=== PATIENT | female | born 1975 | race Caucasian/White ===

== ENCOUNTER 2019-02-05 20:04 | Inpatient (IN) | payer MEDICAID, SELFPAY ==
--- NOTE | ~2019-02-05 | CT_ITS ---
EXAMINATION: CT facial bones w con DATE: 02/05/2019 22:37 INDICATION: Left facial swelling and erythema and pain. TECHNIQUE: Computed tomography (CT) of the facial bones and maxillofacial region was performed with 7 5 mL Omnipaque 350 intravenous contrast. Automated exposure control and iterative reconstruction tech Dvine[employer]que were employed. The dose-length product was 1220.05 mGy-cm. COMPARISON: None. FINDINGS: There is mild mucosal thickening in the ethmoid sinuses. There is a mucous retention cyst i n right maxillary sinus. There is moderate mucosal thickening in left maxillary sinus. The orbits are normal. The proximal internal carotid arteries are normal. There are lucencies around the roots of t ooth 15 with breech of the buccal cortex of the alveolar process. There is fat stranding in left face , consistent with edema/inflammation. There is mild cervical spondylosis. IMPRESSION: 1. Lucencies around the roots of tooth 15 with breech of the buccal cortex of the alveolar process. Reviewed, dictated and finalized at location B. [employer]ICAL POWER ENGINEER IMPRESSION: 1. Lucencies around the roots of tooth 15 with breech of the buccal cortex of t he alveolar process.
[2019-02-05 20:07] VITALS: BP 140/70; PULSE 92; RESP 18; TEMP 36.2; O2SAT 100
--- NOTE | 2019-02-05 21:46 | ED.GENADULT ---
HPI - General Adult General Chief complaint: Dental/Oral Stated complaint: L UPPER JAW INFECTION Time Seen by Provider: 02/05/19 21:36 Source: patient Mode of arrival: ambulatory Limitations: no limitations History of Present Illness HPI narrative: Pt is a 43 y/o female presenting to the ED c/o jaw infection. Pt reports she presented to this ED last Wednesday where she was diagnosed with a jaw infection and prescribed Clindamycin and Z-Pack. Pt notes her swelling has worsened and her pain is now radiating to the top of her head. Pt denies SOB. Onset (ago): unknown Location: mouth (Lt sided jaw) Radiation: other (Top of head) Associated symptoms: other (None) Related Data Home Medications Medication Instructions Recorded Confirmed clindamycin HCl 300 mg PO Q8H 02/05/19 02/05/19 naproxen sodium 440 mg PO BID 02/05/19 02/05/19 Allergies Allergy/AdvReac Type Severity Reaction Status Date / Time Penicillins Allergy Unknown Verified 02/05/19 21:38 Review of Systems Review of Systems: All systems reviewed & are unremarkable except as noted in HPI and below ENT: Reports other (Lt sided jaw pain radiating to top of head) Respiratory: Respiratory: Denies dyspnea PMFSH Past Medical History Medical History Endometriosis (Acute) Surgical History Surgical History History of endometrial ablation (Acute) Social History Social History Smoking status: Current every day smoker Additional smoking assessment comments: 1/2 PPD Gender identity (if verbalized by the patient): Female Exam Const: Other: Well appearing, well nourished, and in no acute distress. HENMT: Other: Diffuse lt sided facial swelling. Eyes: Other: EOMI. Neck: Other: Supple Resp: Other: Airway patent. No respiratory distress. Back/Spine/Pelvis: Other: Normal ROM. Skin: Other: Warm, dry, and normal color. Neuro: Other: Alert and oriented x4. speech clear. Motor intact. CN II-XII intact. Extrem: Other: Full ROM Psych: Other: Normal mood and normal affect. Course Course Emergency Course: Re the listed PCN allergy, she states that is whet her mom, now , always told her but she doesn't know why. Additionally she notes that she has taken amoxicillin without any problems. So, appears it would be safe to give her unasyn for her sinus/dental/cellulitis condition Also notes she has an appointment with oral surgery on / on Wednesday Vital Signs Vital signs: Vital Signs Temperature 36.2 C L 02/05/19 20:07 Pulse Rate 92 02/05/19 20:07 Respiratory Rate 18 02/05/19 20:07 Blood Pressure 140/70 02/05/19 20:07 Pulse Oximetry 100 02/05/19 20:07 Temperature 36.2 C L 02/05/19 20:07 Pulse Rate 92 02/05/19 20:07 Respiratory Rate 18 02/05/19 20:07 Blood Pressure 140/70 02/05/19 20:07 Pulse Oximetry 100 02/05/19 20:07 Medical Decision Making Vital Signs Vital Signs: Vital Signs Temperature 36.2 C L 02/05/19 20:07 Pulse Rate 92 02/05/19 20:07 Respiratory Rate 18 02/05/19 20:07 Blood Pressure 140/70 02/05/19 20:07 Pulse Oximetry 100 02/05/19 20:07 Temperature 36.2 C L 02/05/19 20:07 Pulse Rate 92 02/05/19 20:07 Respiratory Rate 18 02/05/19 20:07 Blood Pressure 140/70 02/05/19 20:07 Pulse Oximetry 100 02/05/19 20:07 Lab Data Result diagrams: 02/05/19 22:10 02/05/19 22:10 Labs: Lab Results 02/05/19 02/05/19 Range/Units 22:10 22:10 WBC 10.8 H (4.5-10.0) K/mm3 RBC 4.41 (4.2-5.4) M/mm3 Hgb 13.6 (12.0-15.0) g/dL Hct 40.5 (37.0-47.0) % MCV 91.8 (80-100) fl MCH 30.8 (26-34) pg MCHC 33.6 (32-36) g/dl RDW 12.1 (11.5-14.5) % Plt Count 245 (150-375) k/mm3 MPV 9.9 (7.4-10.4) fl Immature Gran % (Auto) 0.3 (0-0.5) % Neut % (Auto) 59.9 (45.5-73.1)
[2019-02-05 22:17] LABS: Basophils Absolute Auto 0.1 K/mm3 (0.0-0.1); Basophils Percent Auto 0.7 % (0.2-1.2); Eosinophils Absolute Auto 0.4 K/mm3 (0-0.3); Eosinophils Percent Auto 3.6 % (0-4.4); Hematocrit 40.5 % (37.0-47.0); Hemoglobin 13.6 g/dL (12.0-15.0); Immature Granulocyte Absolute 0.03 K/mm3 (0.00-0.031); Immature Granulocyte Percent A 0.3 % (0-0.5); Lymphocytes Absolute Auto 3.13 K/mm3 (0.9-3.2); Mean Corpuscular HGB Conc 33.6 g/dl (32-36); Mean Corpuscular Hemoglobin 30.8 pg (26-34); Mean Corpuscular Volume 91.8 fl (80-100); Mean Platelet Volume 9.9 fl (7.4-10.4); Monocytes Absolute Auto 0.7 K/mm3 (0.1-0.6); Monocytes Percent Auto 6.5 % (2.6-8.5); Neutrophils Absolute Auto 6.5 K/mm3 (1.3-6.7); Neutrophils Percent Auto 59.9 % (45.5-73.1); Platelet Count Result 245 k/mm3 (150-375); Red Blood Count 4.41 M/mm3 (4.2-5.4); Red Cell Distribution Width 12.1 % (11.5-14.5); White Blood Count 10.8 K/mm3 (4.5-10.0)
[2019-02-05 22:28] LABS: Blood Urea Nitrogen 10 mg/dL (7-17); Calcium 9.6 mg/dL (8.4-10.2); Carbon Dioxide 23 mmol/L (22-30); Chloride 103 mmol/L (98-107); Estimated CRCL calculation 121 ml/min; Estimated Glomerular Filt Rate > 60; Glucose 96 mg/dL (65-105); Potassium 3.9 mmol/L (3.4-5.0); Sodium 138 mmol/L (137-145)
[2019-02-06] MEDS: ONDANSETRON INJ 4 MG/2 ML VIAL IV PUSH (00:23)
[2019-02-06] MEDS: ACETAMINOPHEN 325 MG TABLET 650 MG PO ×2 (00:24→12:56)
[2019-02-06] MEDS: LACTATED RINGERS 1,000 ML 125 ML IV CONT ×2 (00:26→08:52)
[2019-02-06] MEDS: AMPICILLIN SODIUM/SULBACTAM 3 GM in SODIUM CHLORIDE 0.9% IV 100 ML IVPB ×3 (00:28→11:55)
[2019-02-06 02:00] VITALS: BP 117/82; PULSE 71; RESP 18; TEMP 37; O2SAT 100
[2019-02-06 02:20] VITALS: BP 133/84; PULSE 65; RESP 16; TEMP 36.2; O2SAT 98; BMI 32.4
--- NOTE | 2019-02-06 02:29 | ADMGEN ---
This patient, Alona Blackburn, was admitted to 3 [facility] Surg Room 330-01. Patient/family oriented to hospital policies and general routines including ID bracelet, bed and alarms, visiting hours, pain management, procedures, bathroom and other care routines, personal items, smoking policy, room service/diet, and visiting hours. Valuables list has been completed. Information on how to activate the Rapid Response Team has been discussed. Patient/Family are encouraged to report perceived risks to care and to ask questions if they do not understand what they are told or what they should do.
--- NOTE | 2019-02-06 14:27 | PM.SD ---
Same Day Admit/Disch: HPI History of Present Illness Chief complaint: facial cellulitis Narrative: Alona Blackburn is a 43 year old female who presented to the emergency room for left-sided tooth pain and facial swelling. Patient states that she was in the emergency room last Wednesday for this and was given clindamycin and went home. She proceeded to get worse and came back to emergency room and got azithromycin which did not seem to help either. Finally, she came back 02/05 with worsened facial cellulitis with progressing tooth pain. States the pain started in her left back tooth and hurt through her sinus, to her temporal bone, and down her jaw. This was associated with a slight headache. She was unable to eat cold items but hot food and liquids seem to help. She called an oral surgeon, Dr. rueda with [facility] oral surgery and has an appointment 02/07 at 1:30 pm. for extraction. She says she does not think she was running fevers but she did not check. She denied vision changes, diarrhea, chest pain, shortness of breath, nausea or vomiting. She did have some nausea when taking her antibiotic but nothing other than that. She said her last dental cleaning was in 2015. She has no history of tooth abscess and she has had her wisdom teeth removed. She says she initially thought she had a popcorn kernel stuck in her left back tooth and when she went to pick at it she had excruciating pain which never resolved. She does eat quite a bit of sweets and since it was just Halloween she has probably eating a little more than usual. [facility] Past Medical History Medical History (Updated 02/06/19 @ 14:51 by Gabriela Pastrana PA-C) Endometriosis (Acute) HLD (hyperlipidemia) (Inactive) Surgical History Surgical History (Updated 02/06/19 @ 14:47 by Gabriela Pastrana PA-C) History of endometrial ablation (Acute) Tubal ligation status (Acute) Family History Family History Grandparent Stomach cancer Sibling Diabetes mellitus Mother Diabetes mellitus Heart attack Social History Social History Smoking packs per day: 1 Smoking cigarettes per day: 20.0 Years smoked: 33 Smoking pack-years: 33.00 Smoking status: Current every day smoker Additional smoking assessment comments: /2 PPD Alcohol intake: current Substance use: never Gender identity (if verbalized by the patient): Female Spiritual care concerns: No Agree to blood products: Yes Same Day Admit/Disch: Med Pre-admit Medications Home Medications Medication Instructions Recorded Confirmed Type naproxen sodium 440 mg PO BID 02/05/19 02/06/19 History Exam Narrative: Exam Narrative: General:Well developed well nourished patient HEENT: Normocephalic with very slight left cheek erythema and swelling. Tooth examined and is limited since it is the dorsal part of her tooth. sinus pain in the left maxillary area. Neck: Supple Resp: CTA Heart: RRR with no murmurs Abd: Soft, nontender. No pain to palpation. Positive bowel sounds Skin: Warm and dry Extremities: No swelling, erythema or pain to palpation Neuro: Alert and Oriented x4 . CN 2-12 intact. No focal neurological deficits. DS: Data Data Completed and Pending Labs on day of discharge: Labs from last 24 hours 02/05/19 02/05/19 22:10 22:10 WBC 10.8 H RBC 4.41 Hgb 13.6 Hct 40.5 MCV 91.8 MCH 30.8 MCHC 33.6 RDW 12.1 Plt Count 245 MPV 9.9 Immature Gran % (Auto) 0.3 Neut % (Auto) 59.9 Lymph % (Auto) 29.0 Borden % (Auto) 6.5 Eos % (Auto) 3.6 Baso % (Auto) 0.7 Lymph # (Auto) 3.13 Borden # (Auto) 0.7 H Eos # (Auto) 0.4 H Baso # (Auto) 0.1 Abs Immat Gran (auto) 0.03 Absolute Neuts (auto) 6.5 Absolute Nucleated RBC 0.0 Nucleated RBC % 0.0 Sodium 138 Potassium 3.9 Chloride 103 Carbon Dioxide 23 BUN 10 Creatinine 0.
--- NOTE | 2019-02-06 15:31 | PC.NURSE ---
Around 10a, told Gabriela Pastrana that pt's oral surgeon is Dr Mae at [facility] [phone].
== END 2019-02-06 15:10 | disposition home or self-care (01) | DRG 114 ==
LOC: ANHED 23:44 → ANH3MEDSUR 02-06 01:19
PROVIDERS: Admitting Provider Internal Medicine; Emergency Provider Emergency Medicine; Visit Provider Internal Medicine
DX: K04.7 Periapical abscess without sinus (principal); L03.211 Cellulitis of face; J32.9 Chronic sinusitis, unspecified; F17.210 Nicotine dependence, cigarettes, uncomplicated
CPT/HCPCS: 36415; 70487; 80048; 85025; 96361; 96374; 96375; 99285; A9270; J0295; J2405; J7120; Q9967

== ENCOUNTER 2019-05-16 09:55 | Emergency (ER) | payer OTHER, SELFPAY ==
[2019-05-16 09:59] VITALS: BP 132/71; PULSE 109; RESP 16; TEMP 37.2; O2SAT 99
--- NOTE | 2019-05-16 11:01 | ED.BACK ---
HPI - Back Pain/Injury General Chief Complaint: Back Pain/Injury Stated Complaint: cough, back pain Time Seen by Provider: 05/16/19 10:35 Source: patient Mode of arrival: ambulatory Limitations: no limitations History of Present Illness HPI Narrative: Patient is a 43-year-old female who presents to emergency department for evaluation of cough congestion rhinorrhea body aches back pain for the last 3 days has taken ibuprofen with minimal improvement does note history of chronic low back pain patient denies other complaints and on arrival is in the room in no distress took ibuprofen this morning Related Data Allergies Allergy/AdvReac Type Severity Reaction Status Date / Time lactose AdvReac Gastrointestinal Verified 05/16/19 10:59 Upset Review of Systems Review of Systems: All systems reviewed & are unremarkable except as noted in HPI and below PMFSH Past Medical History Medical History Endometriosis HLD (hyperlipidemia) Surgical History Surgical History History of endometrial ablation Tubal ligation status Family History Family History Grandparent Stomach cancer Sibling Diabetes mellitus Mother Diabetes mellitus Heart attack Social History Social History Smoking packs per day: 1 Smoking cigarettes per day: 20.0 Years smoked: 33 Smoking pack-years: 33.00 Smoking status: Current every day smoker Additional smoking assessment comments: 1/2 PPD Alcohol intake: current Substance use: never Gender identity (if verbalized by the patient): Female Spiritual care concerns: No Agree to blood products: Yes Exam Narrative: Exam Narrative: GENERAL: Well-appearing, well-nourished, and in no acute distress. HEAD: Normocephalic, atraumatic. EYES: PERRLA and EOMI. ENT: Nares clear, no rhinorrhea or epistaxis. Mucous membranes moist. Oropharynx without tonsillar hypertrophy exudate or other lesions. NECK: Supple. No adenopathy or masses. CHEST: Clear to auscultation. No respiratory distress. No wheezes rales or rhonchi HEART: Regular rate and rhythm. No murmur heard. Normal peripheral pulses. EXTREMITIES: Normal range of motion. No edema. SKIN: Warm, dry, no rash. NEURO: No focal deficits. Alert and oriented x3. Cranial nerves II through XII grossly intact PSYCH: Normal mood and affect. Course Course Emergency Course: Patient in the room in no distress aware of case findings treatment plan and diagnosis Vital Signs Vital signs: Vital Signs Temperature 98.9 F 05/16/19 09:59 Pulse Rate 109 H 05/16/19 09:59 Respiratory Rate 16 05/16/19 09:59 Blood Pressure 132/71 05/16/19 09:59 Pulse Oximetry 99 05/16/19 09:59 Temperature 98.9 F 05/16/19 09:59 Pulse Rate 109 H 05/16/19 09:59 Respiratory Rate 16 05/16/19 09:59 Blood Pressure 132/71 05/16/19 09:59 Pulse Oximetry 99 05/16/19 09:59 MDM - Back Pain/Injury MDM Narrative Medical decision making narrative: Patient with influenza afebrile nontoxic-appearing no distress felt appropriate for outpatient reevaluation Lab Data Labs: Influenza A Screen Positive Reference Range: Negative Influenza B Screen Negative Reference Range: Negative Discharge Plan Discharge Clinical Impression: Influenza Patient Disposition: Home, Self-Care Condition: Stable Instructions: Antibiotic Form, Influenza (DC) Additional Instructions: Follow up with your primary care provider within 5-7 days. Go to ER for shortness of breath, difficulty breathing, chest pain, fever/chills, weakness, nauseau/vomitting, etc. or any other concerns. Stay well-hydrated Take any prescribed medications as directed. Follow patient education sheets If you do no
[2019-05-16] MEDS: ACETAMINOPHEN 500 MG TABLET 1000 MG PO (11:12)
[2019-05-16] MEDS: IBUPROFEN 600 MG TABLET PO (11:12)
--- NOTE | 2019-05-16 11:19 | PC.NURSE ---
Bedside report to KACIE Mascorro, to continue care.
[2019-05-16 11:20] VITALS: BP 123/74; PULSE 104; RESP 12; TEMP 37.2; O2SAT 95
--- NOTE | 2019-05-16 11:21 | PC.NURSE ---
assumed care of pt at this time. report from KACIE boyd
[2019-05-16 11:26] LABS: Add Urine Microscopic? YES; Appearance Urine Cloudy (Clear); Bacteria Urine Trace /hpf; Bilirubin Urine Negative (Negative); Blood Urine 3+ (Negative); Color Urine Yellow (Yellow); Glucose Urine UA Negative (Negative); Ketones Urine Trace mg/dL (Negative); Leukocyte Esterase Ur Trace LEU/UL (Negative); Mucus Urine Few /lpf; Nitrate Urine Negative (Negative); Protein Urine 2+ mg/dL (Negative); RBC Urine 21-50 /hpf (0-2); Specific Grav Ur 1.027 (1.001-1.035); Squamous Epithelial Cell Urine Many /hpf (Few); Urobilinogen Urine Negative mg/dL (<2.0)
[2019-05-16 12:05] VITALS: BP 121/80; PULSE 100; RESP 19; TEMP 37.2; O2SAT 96
== END 2019-05-16 12:05 | disposition home or self-care (01) ==
PROVIDERS: Emergency Medicine Emergency Medical Services; Emergency Provider Emergency Medicine
DX: J11.1 Influenza due to unidentified influenza virus with other respiratory manifestations (principal); F17.210 Nicotine dependence, cigarettes, uncomplicated
CPT/HCPCS: 81001; 87086; 87804; 99283; A9270

== ENCOUNTER 2019-12-08 23:19 | Emergency (ER) | payer OTHER, SELFPAY ==
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
[2019-12-09 00:12] VITALS: BP 144/82; PULSE 93; RESP 20; TEMP 36.4; O2SAT 100
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
[2019-12-09] MEDS: TETANUS,DIPHTHERIA,AC PERTUSSIS ADULT (0.5 ML) BOOSTRIX IM (02:12)
[2019-12-09 04:05] VITALS: BP 133/74; PULSE 73; RESP 18; O2SAT 100
== END 2019-12-09 04:05 | disposition home or self-care (01) ==
PROVIDERS: Emergency Provider General Practice; PCP Emergency Medicine
DX: S50.11XA Contusion of right forearm, initial encounter (principal); Y04.8XXA Assault by other bodily force, initial encounter; E78.5 Hyperlipidemia, unspecified; N80.9 Endometriosis, unspecified; F17.210 Nicotine dependence, cigarettes, uncomplicated; Z23 Encounter for immunization
CPT/HCPCS: 73090; 73130; 90471; 90715; 99283